=== PATIENT | female | born 1995 | race Caucasian/White ===

== ENCOUNTER 2017-05-09 00:32 | Emergency (ER) | payer SELFPAY ==
[2017-05-09 00:40] VITALS: TEMP 97.9
--- NOTE | 2017-05-09 01:06 | EDPHY ---
H & P Stated Complaint: etoh, says was feeling nauseous earlier HPI/ROS: Chief Complaint: Alcohol intoxication HPI: 21-year-old female states she was drinking earlier tonight. She was feeling nauseated earlier. Some bystander notice use intoxicated called 911. Patient does not have fallen down. No loss of consciousness. She is awake alert and ambulating without any difficulty. No nausea or vomiting. No fevers or chills. She is currently without complaint. ROS: 10 point Review of Systems is negative except as noted in the HPI. PMH: Anxiety Social History: No smoking, occasional alcohol, no recreational drug use Family History: non-contributory Physical Exam: Gen: Awake, Alert, No Distress HEENT: Nose: no rhinorrhea Eyes: PERRLA, EOMI Mouth: Moist mucosa Neck: Supple, no JVD Chest: nontender, lungs clear to auscultation Heart: S1, S2 normal, no murmur Abd: Soft, non-tender, no guarding Back: no CVA tenderness, no midline tenderness Ext: no edema, non-tender Skin: no rash Neuro: CN II-XII intact, Sensation grossly intact, Strength 5/5 in bilateral upper and lower extremities - Medical/Surgical History Hx Asthma: No Hx Chronic Respiratory Disease: No Hx Diabetes: No Hx Cardiac Disease: No Hx Renal Disease: No Hx Cirrhosis: No Hx Alcoholism: No Hx HIV/AIDS: No Hx Splenectomy or Spleen Trauma: No Other PMH: anxiety - Social History Smoking Status: Never smoked Constitutional: Initial Vital Signs Temperature (C) 36.6 C 05/09/17 00:35 Heart Rate 104 H 05/09/17 00:35 Respiratory Rate 18 05/09/17 00:35 Blood Pressure 128/100 H 05/09/17 00:35 O2 Sat (%) 97 05/09/17 00:35 O2 Delivery Mode Room Air Allergies/Adverse Reactions: Milk Containing Products [dairy] Allergy (Verified 05/09/17 00:41) Penicillins Allergy (Verified 05/09/17 00:41) Home Medications: Medication Instructions Recorded NK [No Known Home Meds] 05/09/17 Medical Decision Making ED Course/Re-evaluation: Patient brought in for alcohol intoxication. She is awake alert. She is ambulating unassisted. She has not had any vomiting. She has a sober friend here who can take her home. Will discharge with follow-up as an outpatient. Departure - Departure Disposition: Home, Routine, Self-Care Clinical Impression: Alcoholic intoxication Condition: Good Instructions: Alcohol Intoxication (ED) Referrals: Patient,NotPresent [Primary Care Provider] - As per Instructions
[2017-05-09 01:33] VITALS: BP 111/75; PULSE 67; RESP 16; O2SAT 96
== END 2017-05-09 01:33 | disposition home or self-care (01) ==
DX: F10.129 Alcohol abuse with intoxication, unspecified (principal)